=== PATIENT | female | born 1980 | race African-American/Black ===

== ENCOUNTER 2019-01-24 09:21 | Emergency (ER) | payer OTHER ==
[~2019-01-24] VITALS: Ht 154.9 cm; Wt 90.7 kg
[~2019-01-24 09:21] MED LIST: ALLEGRA180 MG PO; BACTRIM DS TAB1 EACH PO; DOXYCYCLINE 10100 MG PO; NORCO 5-325 TA1 EACH PO
[2019-01-24 12:32] VITALS: BP 133/80
== END 2019-01-24 12:32 | disposition home or self-care (01) ==
LOC: ER 09:21
DX: B34.9 Viral infection, unspecified (principal); F17.210 Nicotine dependence, cigarettes, uncomplicated